=== PATIENT | female | born 1935 | race Caucasian/White ===

== ENCOUNTER 2016-11-03 14:51 | Emergency (ER) | payer MEDICARE, BC ==
[2016-11-03 15:02] VITALS: BP 168/63
[2016-11-03] MEDS ORDERED: methylPREDNISolone Sodium Succinate 125 MG/2 ML SDV IM ONE (15:22)
--- NOTE | 2016-11-03 15:28 | EDM.PDOC ---
ED HPI GENERAL MEDICAL PROBLEM - General Chief Complaint: Skin Complaint Stated Complaint: RASH Time Seen by Provider: 11/03/16 15:10 Source of Information: Reports: Patient, Family, RN, RN Notes Reviewed History Limitations: Reports: No Limitations - History of Present Illness INITIAL COMMENTS - FREE TEXT/NARRATIVE: Patient presents to the emergency room at [facility] with a possible drug reaction. The patient states that she started taking amoxicillin last Saturday for a diagnosis of a sinus infection and sore throat. The patient also started taking Bystolic for her blood pressure last Saturday. The patient states she noticed last night she had redness and swelling below the left eye around the left cheek area. The patient states the area was very itchy. The patient states she noticed today the rash had spread to both lower legs around the trunk and arms. The patient states the rash is itchy. The rash is not painful. The patient denies any airway compromise. The patient has never been on amoxicillin or Bystolic in the past. The patient states that she washed the affected areas with soap and water and applied cortisone cream, which did give her some relief. Onset Date: 11/02/16 - Related Data Allergies Allergy/AdvReac Type Severity Reaction Status Date / Time No Known Allergies Allergy Verified 11/03/16 15:04 Home Meds: Home Meds Amoxicillin 875 mg PO BID 11/03/16 [History] Nebivolol [Bystolic] 2.5 mg PO DAILY 11/03/16 [History] predniSONE [Deltasone] 20 mg PO BID #4 tablet 11/03/16 [Rx] Past Medical History Cardiovascular History: Reports: Hypertension Social & Family History - Tobacco Use Smoking Status *Q: Unknown Ever Smoked ED ROS GENERAL - Review of Systems Review Of Systems: See Below Constitutional: Denies: Fever, Chills, Weakness Respiratory: Denies: Shortness of Breath, Wheezing, Cough Cardiovascular: Denies: Chest Pain, Dyspnea on Exertion, Palpitations GI/Abdominal: Denies: Abdominal Pain, Nausea, Vomiting Skin: Reports: Pruritis, Rash, Urticaria Neurological: Reports: No Symptoms. Denies: Dizziness, Headache ED EXAM, SKIN/RASH Exam: See Below Exam Limited By: No Limitations General Appearance: Alert, No Apparent Distress Throat/Mouth: No Airway Compromise Neck: Supple Respiratory/Chest: No Respiratory Distress, Lungs Clear, Normal Breath Sounds Cardiovascular: Regular Rate, Rhythm GI/Abdominal: Normal Bowel Sounds, Soft, Non-Tender Neurological: Alert, Oriented Skin: Warm, Dry, Intact, Rash Location, Skin: Upper Extremity, Right, Upper Extremity, Left, Lower Extremity, Right, Lower Extremity, Left Characteristics: Urticarial Associated features: Warmth Course - Vital Signs Last Recorded V/S: Last Vital Signs Temp 36.8 C 11/03/16 14:55 Pulse 66 11/03/16 14:55 Resp 18 11/03/16 14:55 BP 168/63 H 11/03/16 14:55 Pulse Ox 97 11/03/16 14:55 - Orders/Labs/Meds Orders: Active Orders 24 hr Category Date Time Status methylPREDNISolone Sod Succ [Solu-MEDROL] Med 11/03/16 15:22 Once 125 mg IM ONETIME ONE Departure - Departure Time of Disposition: 15:32 Disposition: Home, Self-Care 01 Condition: Good Clinical Impression: Allergic drug reaction Qualifiers: Encounter type: initial encounter Qualified Code(s): T78.40XA - Allergy, unspecified, initial encounter - Discharge Information Prescriptions: predniSONE [Deltasone] 20 mg PO BID #4 tablet Instructions: Drug Rash, Drug Allergy Referrals: Rosemary Monson MD [Physician] - Forms: ED Department Discharge Additional Instructions: 1. Stay well hydrated and rest 2. Take medication for the full coarse, even if symptoms are better 3. Take to your Primary care provider on Saturday for a follow up 4. Stop taking the Amoxicillin; continue taking the Bystolic - Problem List Review Problem List Initiated/Reviewed/Updated: Yes - My Orders Last 24 Hours: My Active Orders 11/03/16 15:22 methylPREDNISolone Sod Succ [Solu-MEDROL] 125 mg IM ONETIME ONE - Assessment/Plan Last 24 Hours: My Active Orders 11/03/16 15:22 methylPREDNISolone Sod Succ [Solu-MEDROL] 125 mg IM ONETIME ONE
[2016-11-03] MEDS ORDERED: Take Home: predniSONE 20 MG, 2 Tab Pack PO ONE (15:36)
== END 2016-11-03 15:48 | disposition home or self-care (01) ==
LOC: VM.ED 14:51
DX: L50.9 Urticaria, unspecified (principal); T36.0X5A Adverse effect of penicillins, initial encounter; T44.7X5A Adverse effect of beta-adrenoreceptor antagonists, initial encounter; I10 Essential (primary) hypertension
CPT/HCPCS: 96372; 99283; A9270; J2930

== ENCOUNTER 2023-08-30 18:37 | Emergency (ER) | payer MEDICARE, BC ==
[2023-08-30 23:12] VITALS: BP 201/83; PULSE 72
== END 2023-08-30 19:30 | disposition home or self-care (01) ==
LOC: VM.ED 18:37
DX: I10 Essential (primary) hypertension (principal); F41.9 Anxiety disorder, unspecified
CPT/HCPCS: 99283

== ENCOUNTER 2023-09-02 10:44 | Emergency (ER) | payer MEDICARE, BC ==
[2023-09-02 11:28] LABS: BASOPHILS PERCENT AUTO 0.2 % (0.2-1.2); HEMATOCRIT 33.6 % (33.0-47.0); HEMOGLOBIN 11.4 g/dL (12.0-16.0); LYMPHOCYTES ABSOLUTE AUTO 1.3 x10^3/uL (1.0-4.8); LYMPHOCYTES PERCENT AUTO 24.7 % (25.0-50.0); MEAN CORPUSCULAR HEMOGLOBIN 30.8 pg (26.0-32.0); MEAN CORPUSCULAR HGB CONC 33.9 g/dL (32.0-36.0); MEAN CORPUSCULAR VOLUME 90.8 fL (78.0-93.0); MONOCYTES ABSOLUTE AUTO 0.4 x10^3/uL (0.0-0.8); MONOCYTES PERCENT AUTO 7.1 % (2.0-11.0); NEUTROPHILS ABSOLUTE AUTO 3.6 x10^3/uL (1.8-7.7); PLATELET COUNT,PLT 258 x10^3/uL (130-400); WHITE BLOOD CELL COUNT,WBC 5.3 x10^3/uL (4.0-10.0)
[2023-09-02 11:37] VITALS: BP 173/81; PULSE 84
[2023-09-02 11:37] LABS: APPEARANCE,URINE CLEAR (CLEAR); BILIRUBIN,URINE SMALL (NEGATIVE); COLOR,URINE YELLOW (YELLOW); GLUCOSE,URINE NEGATIVE (NEGATIVE); KETONES,URINE 80 mg/dL (NEGATIVE); LEUKOCYTE ESTERASE,URINE NEGATIVE (NEGATIVE); NITRITE,URINE NEGATIVE (NEGATIVE); OCCULT BLOOD,URINE NEGATIVE (NEGATIVE); PH,URINE 5.5 (5.0-8.0); PROTEIN,URINE 30 mg/dL (NEGATIVE); UROBILINOGEN,URINE 0.2 EU/dL (0.2)
[2023-09-02 11:39] LABS: AMORPHOUS SEDIMENT,URINE RARE; BACTERIA,URINE RARE /HPF (NOT SEEN); HYALINE CASTS,URINE FEW; MUCUS,URINE NOT SEEN /LPF (NOT SEEN); RBC,URINE 0-5 /HPF (NOT SEEN); SQUAMOUS EPITHELIAL CELLS,UR RARE /HPF (NOT SEEN); WBC,URINE 0-5 /HPF (NOT SEEN)
[2023-09-02 11:47] LABS: A/G RATIO 1.03; ALBUMIN 3.5 g/dL (3.4-5.0); BILIRUBIN TOTAL 0.4 mg/dL (0.2-1.0); CALCIUM 9.3 mg/dL (8.5-10.1); CREATININE 0.9 mg/dL (0.55-1.02); EST CRCL DRUG DOSING (CG) 33.39 mL/min; POTASSIUM,K 4.2 mmol/L (3.5-5.1); PROTEIN TOTAL,TP 6.9 g/dL (6.4-8.2)
[2023-09-02 11:51] LABS: ANION GAP 15.2 mmol/L (5-15)
[2023-09-02] MEDS: Lactated Ringers 1,000 ML IV SCH (12:22)
== END 2023-09-02 14:00 | disposition home or self-care (01) ==
LOC: VM.ED 10:44 → SUPCPDRO 10:44 → VM.ED 14:00
DX: R42 Dizziness and giddiness (principal); I10 Essential (primary) hypertension; Z91.048 Other nonmedicinal substance allergy status; Z79.899 Other long term (current) drug therapy
CPT/HCPCS: 80053; 81001; 85025; 93005; 99284; J7120

== ENCOUNTER 2024-05-02 09:44 | Emergency (ER) | payer MEDICARE, BC ==
[2024-05-02 10:33] VITALS: BP 149/74; PULSE 68
== END 2024-05-02 10:24 | disposition home or self-care (01) ==
LOC: VM.ED 09:44
DX: K52.9 Noninfective gastroenteritis and colitis, unspecified (principal); I10 Essential (primary) hypertension; Z79.899 Other long term (current) drug therapy; Z91.048 Other nonmedicinal substance allergy status
CPT/HCPCS: 99283; 99284

== ENCOUNTER 2024-05-03 13:27 | Inpatient (IN) | payer MEDICARE, BC ==
[2024-05-03] MEDS ORDERED: Sodium Chloride 0.9% 10 ML Syringe FLUSH PRN (13:39)
[2024-05-03] MEDS: Sodium Chloride 0.9% 1,000 ML IV SCH (14:02)
[2024-05-03 14:07] LABS: BASOPHILS PERCENT AUTO 0.5 % (0.2-1.2); EOSINOPHILS ABSOLUTE AUTO 0.1 x10^3/uL (0.0-0.5); EOSINOPHILS PERCENT AUTO 2.3 % (0.0-4.0); HEMATOCRIT 33.3 % (33.0-47.0); LYMPHOCYTES ABSOLUTE AUTO 1.5 x10^3/uL (1.0-4.8); LYMPHOCYTES PERCENT AUTO 25.6 % (25.0-50.0); MEAN CORPUSCULAR HEMOGLOBIN 30.8 pg (26.0-32.0); MEAN CORPUSCULAR VOLUME 85.6 fL (78.0-93.0); MONOCYTES ABSOLUTE AUTO 0.4 x10^3/uL (0.0-0.8); MONOCYTES PERCENT AUTO 6.9 % (2.0-11.0); NEUTROPHILS ABSOLUTE AUTO 3.7 x10^3/uL (1.8-7.7); NEUTROPHILS PERCENT AUTO 64.7 % (50.0-80.0); PLATELET COUNT,PLT 307 x10^3/uL (130-400); RED BLOOD CELL COUNT 3.89 x10^6/uL (4.00-5.50); WHITE BLOOD CELL COUNT,WBC 5.7 x10^3/uL (4.0-10.0)
[2024-05-03 14:23] LABS: ALBUMIN 3.8 g/dL (3.4-5.0); BILIRUBIN TOTAL 0.8 mg/dL (0.2-1.0); CALCIUM 9.1 mg/dL (8.5-10.1); CREATININE 0.8 mg/dL (0.55-1.02); EST CRCL DRUG DOSING (CG) 37.71 mL/min; MAGNESIUM 1.7 mg/dL (1.8-2.4); POTASSIUM,K 3.1 mmol/L (3.5-5.1); PROTEIN TOTAL,TP 7.6 g/dL (6.4-8.2)
[2024-05-03 14:26] LABS: ANION GAP 17.1 mmol/L (5-15)
[2024-05-03] MEDS: Potassium Chloride 20 MEQ Tab.ER PO ONE (14:34)
[2024-05-03] MEDS ORDERED: Ondansetron 4 MG Tab.DIS PO PRN (16:03)
[2024-05-03] MEDS ORDERED: Acetaminophen 325 MG Tab PO PRN (16:03)
[2024-05-03] MEDS ORDERED: Loperamide 2 MG Cap PO PRN (16:10)
[2024-05-03] MEDS: NS with KCl 40mEq 1,000 ML IV SCH (16:50)
[2024-05-03 18:48] LABS: APPEARANCE,URINE CLEAR (CLEAR); BILIRUBIN,URINE NEGATIVE (NEGATIVE); COLOR,URINE YELLOW (YELLOW); GLUCOSE,URINE NEGATIVE (NEGATIVE); KETONES,URINE 40 mg/dL (NEGATIVE); LEUKOCYTE ESTERASE,URINE NEGATIVE (NEGATIVE); NITRITE,URINE NEGATIVE (NEGATIVE); OCCULT BLOOD,URINE TRACE-INTACT (NEGATIVE); PROTEIN,URINE NEGATIVE (NEGATIVE); UROBILINOGEN,URINE 0.2 EU/dL (0.2)
[2024-05-03 19:03] LABS: BACTERIA,URINE RARE /HPF (NOT SEEN); RBC,URINE 0-5 /HPF (NOT SEEN); SQUAMOUS EPITHELIAL CELLS,UR RARE /HPF (NOT SEEN); WBC,URINE 0-5 /HPF (NOT SEEN)
[2024-05-03] MEDS: Nystatin Crm 30 GM Tube TOP SCH (20:46)
[2024-05-04 07:06] LABS: BASOPHILS PERCENT AUTO 0.4 % (0.2-1.2); EOSINOPHILS PERCENT AUTO 0.5 % (0.0-4.0); HEMATOCRIT 29.6 % (33.0-47.0); HEMOGLOBIN 10.4 g/dL (12.0-16.0); IMMATURE GRAN ABSOLUTE AUTO 0.01 x10^3/uL (0.00-0.07); LYMPHOCYTES ABSOLUTE AUTO 1.2 x10^3/uL (1.0-4.8); LYMPHOCYTES PERCENT AUTO 21.4 % (25.0-50.0); MEAN CORPUSCULAR HEMOGLOBIN 30.9 pg (26.0-32.0); MEAN CORPUSCULAR HGB CONC 35.1 g/dL (32.0-36.0); MEAN CORPUSCULAR VOLUME 87.8 fL (78.0-93.0); MONOCYTES ABSOLUTE AUTO 0.5 x10^3/uL (0.0-0.8); MONOCYTES PERCENT AUTO 9.3 % (2.0-11.0); NEUTROPHILS ABSOLUTE AUTO 3.8 x10^3/uL (1.8-7.7); NEUTROPHILS PERCENT AUTO 68.2 % (50.0-80.0); PLATELET COUNT,PLT 264 x10^3/uL (130-400); RED BLOOD CELL COUNT 3.37 x10^6/uL (4.00-5.50); WHITE BLOOD CELL COUNT,WBC 5.6 x10^3/uL (4.0-10.0)
[2024-05-04 07:18] LABS: ANION GAP 16.5 mmol/L (5-15); CREATININE 0.6 mg/dL (0.55-1.02); EST CRCL DRUG DOSING (CG) 49.75 mL/min; MAGNESIUM 1.6 mg/dL (1.8-2.4); POTASSIUM,K 4.5 mmol/L (3.5-5.1)
[2024-05-04] MEDS: Metoprolol Succinate 50 MG Tab.ER PO SCH (08:23)
[2024-05-04] MEDS: Sodium Chloride 0.9% 1,000 ML IV SCH (08:30)
[2024-05-04] MEDS: Enoxaparin 40 MG/0.4 ML Syringe SUBCUT SCH (12:38)
[2024-05-04 18:46] VITALS: BP 198/102; PULSE 83
== END 2024-05-04 18:40 | disposition home or self-care (01) | DRG 641 ==
LOC: VM.ED 13:27 → VM.MS 14:35
PROVIDERS: ADMIT Nurse Practitioner Family; ATTEND Nurse Practitioner Family
DX: E87.1 Hypo-osmolality and hyponatremia (principal); E87.6 Hypokalemia; F41.9 Anxiety disorder, unspecified; I10 Essential (primary) hypertension; E78.00 Pure hypercholesterolemia, unspecified; H26.9 Unspecified cataract; F15.90 Other stimulant use, unspecified, uncomplicated; K52.9 Noninfective gastroenteritis and colitis, unspecified; M81.0 Age-related osteoporosis without current pathological fracture; Z86.19 Personal history of other infectious and parasitic diseases; Z98.49 Cataract extraction status, unspecified eye; Z90.89 Acquired absence of other organs; Z98.890 Other specified postprocedural states; Z91.048 Other nonmedicinal substance allergy status; Z79.02 Long term (current) use of antithrombotics/antiplatelets; Z79.899 Other long term (current) drug therapy
CPT/HCPCS: 36415; 80048; 80053; 81001; 83735; 83935; 84295; 85025; 96360; 97161-GP; 99284; 99285-25; A9270-GY; J1650; J3480; J7030

== ENCOUNTER 2024-05-06 04:52 | Emergency (ER) | payer MEDICARE, BC ==
[2024-05-06 05:41] LABS: BASOPHILS PERCENT AUTO 0.5 % (0.2-1.2); EOSINOPHILS ABSOLUTE AUTO 0.1 x10^3/uL (0.0-0.5); EOSINOPHILS PERCENT AUTO 1.6 % (0.0-4.0); HEMATOCRIT 29.5 % (33.0-47.0); HEMOGLOBIN 10.4 g/dL (12.0-16.0); LYMPHOCYTES ABSOLUTE AUTO 1.2 x10^3/uL (1.0-4.8); LYMPHOCYTES PERCENT AUTO 28.1 % (25.0-50.0); MEAN CORPUSCULAR HEMOGLOBIN 31.2 pg (26.0-32.0); MEAN CORPUSCULAR HGB CONC 35.3 g/dL (32.0-36.0); MEAN CORPUSCULAR VOLUME 88.6 fL (78.0-93.0); MONOCYTES ABSOLUTE AUTO 0.4 x10^3/uL (0.0-0.8); NEUTROPHILS ABSOLUTE AUTO 2.7 x10^3/uL (1.8-7.7); NEUTROPHILS PERCENT AUTO 61.8 % (50.0-80.0); PLATELET COUNT,PLT 257 x10^3/uL (130-400); RED BLOOD CELL COUNT 3.33 x10^6/uL (4.00-5.50); WHITE BLOOD CELL COUNT,WBC 4.4 x10^3/uL (4.0-10.0)
[2024-05-06 05:57] LABS: A/G RATIO 0.97; ALBUMIN 3.3 g/dL (3.4-5.0); BILIRUBIN TOTAL 0.5 mg/dL (0.2-1.0); CALCIUM 8.8 mg/dL (8.5-10.1); CREATININE 0.7 mg/dL (0.55-1.02); EST CRCL DRUG DOSING (CG) 43.09 mL/min; POTASSIUM,K 3.5 mmol/L (3.5-5.1); PROTEIN TOTAL,TP 6.7 g/dL (6.4-8.2)
[2024-05-06 05:57] LABS: APPEARANCE,URINE CLEAR (CLEAR); BILIRUBIN,URINE NEGATIVE (NEGATIVE); COLOR,URINE YELLOW (YELLOW); GLUCOSE,URINE NEGATIVE (NEGATIVE); KETONES,URINE 40 mg/dL (NEGATIVE); LEUKOCYTE ESTERASE,URINE NEGATIVE (NEGATIVE); NITRITE,URINE NEGATIVE (NEGATIVE); OCCULT BLOOD,URINE TRACE-LYSED (NEGATIVE); PH,URINE 6.5 (5.0-8.0); PROTEIN,URINE NEGATIVE (NEGATIVE); UROBILINOGEN,URINE 0.2 EU/dL (0.2)
[2024-05-06 05:59] LABS: ANION GAP 9.5 mmol/L (5-15)
[2024-05-06 05:59] LABS: RBC,URINE 0-5 /HPF (NOT SEEN); WBC,URINE 0-5 /HPF (NOT SEEN)
[2024-05-06 06:00] LABS: BACTERIA,URINE NOT SEEN /HPF (NOT SEEN); MUCUS,URINE NOT SEEN /LPF (NOT SEEN); SQUAMOUS EPITHELIAL CELLS,UR OCCASIONAL /HPF (NOT SEEN)
[2024-05-06 06:09] VITALS: BP 167/74; PULSE 64
== END 2024-05-06 06:52 | disposition home or self-care (01) ==
LOC: VM.ED 04:52
DX: I10 Essential (primary) hypertension (principal); Z88.0 Allergy status to penicillin; Z91.048 Other nonmedicinal substance allergy status; Z79.899 Other long term (current) drug therapy
CPT/HCPCS: 36415; 80053; 81001; 85025; 99284

== ENCOUNTER 2024-05-18 08:19 | Emergency (ER) | payer MEDICARE, BC ==
[2024-05-18 08:48] LABS: BASOPHILS PERCENT AUTO 0.3 % (0.2-1.2); EOSINOPHILS ABSOLUTE AUTO 0.1 x10^3/uL (0.0-0.5); EOSINOPHILS PERCENT AUTO 1.4 % (0.0-4.0); HEMATOCRIT 36.7 % (33.0-47.0); HEMOGLOBIN 12.6 g/dL (12.0-16.0); IMMATURE GRAN ABSOLUTE AUTO 0.01 x10^3/uL (0.00-0.07); LYMPHOCYTES ABSOLUTE AUTO 1.6 x10^3/uL (1.0-4.8); LYMPHOCYTES PERCENT AUTO 25.4 % (25.0-50.0); MEAN CORPUSCULAR HEMOGLOBIN 31.2 pg (26.0-32.0); MEAN CORPUSCULAR HGB CONC 34.3 g/dL (32.0-36.0); MEAN CORPUSCULAR VOLUME 90.8 fL (78.0-93.0); MONOCYTES ABSOLUTE AUTO 0.5 x10^3/uL (0.0-0.8); MONOCYTES PERCENT AUTO 7.6 % (2.0-11.0); NEUTROPHILS ABSOLUTE AUTO 4.1 x10^3/uL (1.8-7.7); NEUTROPHILS PERCENT AUTO 65.1 % (50.0-80.0); PLATELET COUNT,PLT 260 x10^3/uL (130-400); RED BLOOD CELL COUNT 4.04 x10^6/uL (4.00-5.50); WHITE BLOOD CELL COUNT,WBC 6.2 x10^3/uL (4.0-10.0)
[2024-05-18 09:06] LABS: A/G RATIO 1.08; ALANINE AMINOTRANSFERASE,ALT 13 U/L (14-59); ALBUMIN 3.9 g/dL (3.4-5.0); ALKALINE PHOSPHATASE 64 U/L (46-116); ASPARTATE AMNIOTRANSFERASE,AST 15 U/L (15-37); BILIRUBIN TOTAL 0.7 mg/dL (0.2-1.0); BLOOD UREA NITROGEN,BUN 8 mg/dL (7-18); CALCIUM 9.2 mg/dL (8.5-10.1); CARBON DIOXIDE,CO2 31 mmol/L (21-32); CHLORIDE,CL 93 mmol/L (98-107); CREATININE 0.7 mg/dL (0.55-1.02); GLUCOSE RANDOM 113 mg/dL (70-99); PROTEIN TOTAL,TP 7.5 g/dL (6.4-8.2); SODIUM,NA 134 mmol/L (136-145)
[2024-05-18 09:12] LABS: ESTIMATED GFR 83 mL/min (>=60)
[2024-05-18 09:47] LABS: BILIRUBIN,URINE NEGATIVE (NEGATIVE); COLOR,URINE YELLOW (YELLOW); GLUCOSE,URINE NEGATIVE (NEGATIVE); KETONES,URINE 15 mg/dL (NEGATIVE); LEUKOCYTE ESTERASE,URINE NEGATIVE (NEGATIVE); NITRITE,URINE NEGATIVE (NEGATIVE); OCCULT BLOOD,URINE TRACE-INTACT (NEGATIVE); PROTEIN,URINE NEGATIVE (NEGATIVE); UROBILINOGEN,URINE 0.2 EU/dL (0.2)
[2024-05-18 09:48] LABS: APPEARANCE,URINE SLIGHTLY CLOUDY (CLEAR)
[2024-05-18 09:52] LABS: BACTERIA,URINE OCCASIONAL /HPF (NOT SEEN); MUCUS,URINE RARE /LPF (NOT SEEN); RBC,URINE 0-5 /HPF (NOT SEEN); SQUAMOUS EPITHELIAL CELLS,UR OCCASIONAL /HPF (NOT SEEN); WBC,URINE 0-5 /HPF (NOT SEEN)
[2024-05-18] MEDS: Lactated Ringers 1,000 ML IV SCH (10:17)
[2024-05-18] MEDS: Potassium Chloride 10 MEQ Tab.ER PO ONE (10:23)
[2024-05-18] MEDS: hydrALAZINE 20 MG/ML SDV IVPUSH ONE (11:04)
[2024-05-18 11:51] VITALS: BP 159/73
[2024-05-18 13:25] VITALS: PULSE 80
== END 2024-05-18 12:34 ==
LOC: VM.ED 08:19
DX: E87.6 Hypokalemia (principal); R63.0 Anorexia; R53.1 Weakness; I10 Essential (primary) hypertension; Z88.0 Allergy status to penicillin; Z91.09 Other allergy status, other than to drugs and biological substances; Z79.899 Other long term (current) drug therapy
CPT/HCPCS: 80053; 81001; 83605; 83735; 85025; 96361; 96374; 99284; 99285-25; A9270-GY; J0360; J7120

== ENCOUNTER 2024-08-16 21:31 | Inpatient (IN) | payer MEDICARE, BC ==
[2024-08-16 22:05] LABS: BASOPHILS PERCENT AUTO 0.1 % (0.2-1.2); EOSINOPHILS ABSOLUTE AUTO 0.1 x10^3/uL (0.0-0.5); EOSINOPHILS PERCENT AUTO 1.6 % (0.0-4.0); HEMATOCRIT 30.9 % (33.0-47.0); HEMOGLOBIN 9.9 g/dL (12.0-16.0); IMMATURE GRAN ABSOLUTE AUTO 0.01 x10^3/uL (0.00-0.07); LYMPHOCYTES ABSOLUTE AUTO 1.1 x10^3/uL (1.0-4.8); LYMPHOCYTES PERCENT AUTO 12.5 % (25.0-50.0); MEAN CORPUSCULAR HEMOGLOBIN 30.6 pg (26.0-32.0); MEAN CORPUSCULAR VOLUME 95.4 fL (78.0-93.0); MONOCYTES ABSOLUTE AUTO 0.5 x10^3/uL (0.0-0.8); MONOCYTES PERCENT AUTO 5.9 % (2.0-11.0); NEUTROPHILS ABSOLUTE AUTO 6.9 x10^3/uL (1.8-7.7); NEUTROPHILS PERCENT AUTO 79.8 % (50.0-80.0); PLATELET COUNT,PLT 287 x10^3/uL (130-400); RED BLOOD CELL COUNT 3.24 x10^6/uL (4.00-5.50); WHITE BLOOD CELL COUNT,WBC 8.7 x10^3/uL (4.0-10.0)
[2024-08-16 22:34] LABS: A/G RATIO 0.89; ALBUMIN 3.2 g/dL (3.4-5.0); BILIRUBIN TOTAL 0.5 mg/dL (0.2-1.0); CALCIUM 8.7 mg/dL (8.5-10.1); CREATININE 0.9 mg/dL (0.55-1.02); EST CRCL DRUG DOSING (CG) 33.52 mL/min; MAGNESIUM 2.1 mg/dL (1.8-2.4); PROTEIN TOTAL,TP 6.8 g/dL (6.4-8.2); TSH ULTRASENSITIVE 0.659 uIU/mL (0.358-3.74)
[2024-08-16 22:38] LABS: ANION GAP 8.6 mmol/L (5-15); POTASSIUM,K 2.6 mmol/L (3.5-5.1)
[2024-08-16 22:45] LABS: APPEARANCE,URINE CLEAR (CLEAR); BILIRUBIN,URINE SMALL (NEGATIVE); COLOR,URINE YELLOW (YELLOW); GLUCOSE,URINE NEGATIVE (NEGATIVE); KETONES,URINE TRACE mg/dL (NEGATIVE); LEUKOCYTE ESTERASE,URINE SMALL (NEGATIVE); NITRITE,URINE NEGATIVE (NEGATIVE); OCCULT BLOOD,URINE NEGATIVE (NEGATIVE); PROTEIN,URINE 100 mg/dL (NEGATIVE)
[2024-08-16] MEDS ORDERED: Sodium Chloride 0.9% 10 ML Syringe FLUSH PRN (22:47)
[2024-08-16 22:53] LABS: AMPHETAMINES SCREEN, URINE NEGATIVE (NEGATIVE); BARBITURATE SCREEN,URINE NEGATIVE (NEGATIVE)
[2024-08-16 22:54] LABS: BENZODIAZEPINES SCREEN,URINE NEGATIVE (NEGATIVE); BUPRENORPHINE SCREEN,URINE NEGATIVE (NEGATIVE); COCAINE METABOLITES,URINE NEGATIVE (NEGATIVE); METHADONE SCREEN, URINE NEGATIVE (NEGATIVE); METHAMPHETAMINE SCREEN, URINE NEGATIVE (NEGATIVE); OXYCODONE SCREEN,URINE NEGATIVE (NEGATIVE); PCP SCREEN,URINE NEGATIVE (NEGATIVE); THC SCREEN,URINE 50 NG/ML NEGATIVE (NEGATIVE)
[2024-08-16] MEDS: LORazepam 2 MG/ML SDV IM ONE (23:00)
[2024-08-16 23:03] LABS: SQUAMOUS EPITHELIAL CELLS,UR MODERATE /HPF (NOT SEEN)
[2024-08-16 23:04] LABS: BACTERIA,URINE MODERATE /HPF (NOT SEEN); HYALINE CASTS,URINE OCCASIONAL; MUCUS,URINE MODERATE /LPF (NOT SEEN)
[2024-08-16] MEDS: cefTRIAXone 1 GM Vial IVPUSH ONE (23:26)
[2024-08-17] MEDS: NS + KCl 20mEq/L 1,000 ML IV SCH (01:43)
[2024-08-17] MEDS: Pantoprazole 40 MG Tab.CR PO SCH (06:25)
[2024-08-17 07:11] LABS: BASOPHILS PERCENT AUTO 0.3 % (0.2-1.2); EOSINOPHILS ABSOLUTE AUTO 0.3 x10^3/uL (0.0-0.5); EOSINOPHILS PERCENT AUTO 3.6 % (0.0-4.0); HEMATOCRIT 27.7 % (33.0-47.0); HEMOGLOBIN 8.8 g/dL (12.0-16.0); IMMATURE GRAN ABSOLUTE AUTO 0.01 x10^3/uL (0.00-0.07); LYMPHOCYTES ABSOLUTE AUTO 1.4 x10^3/uL (1.0-4.8); LYMPHOCYTES PERCENT AUTO 20.9 % (25.0-50.0); MEAN CORPUSCULAR HEMOGLOBIN 30.9 pg (26.0-32.0); MEAN CORPUSCULAR HGB CONC 31.8 g/dL (32.0-36.0); MEAN CORPUSCULAR VOLUME 97.2 fL (78.0-93.0); MONOCYTES ABSOLUTE AUTO 0.5 x10^3/uL (0.0-0.8); MONOCYTES PERCENT AUTO 7.8 % (2.0-11.0); NEUTROPHILS ABSOLUTE AUTO 4.6 x10^3/uL (1.8-7.7); NEUTROPHILS PERCENT AUTO 67.3 % (50.0-80.0); PLATELET COUNT,PLT 225 x10^3/uL (130-400); RED BLOOD CELL COUNT 2.85 x10^6/uL (4.00-5.50); WHITE BLOOD CELL COUNT,WBC 6.9 x10^3/uL (4.0-10.0)
[2024-08-17 07:13] LABS: CALCIUM 8.3 mg/dL (8.5-10.1); CREATININE 0.7 mg/dL (0.55-1.02); EST CRCL DRUG DOSING (CG) 40.61 mL/min
[2024-08-17 07:17] LABS: ANION GAP 4.9 mmol/L (5-15); POTASSIUM,K 2.9 mmol/L (3.5-5.1)
[2024-08-17] MEDS: cefTRIAXone 1 GM Vial IVPUSH SCH (08:21)
[2024-08-17] MEDS: Metoprolol Succinate 50 MG Tab.ER PO SCH (08:28)
[2024-08-17] MEDS: Sennosides/Docusate Sodium 50-8.6 MG Tab PO SCH (08:28)
[2024-08-17] MEDS: Haloperidol 0.5 MG Tab PO PRN (11:26)
[2024-08-17] MEDS: Acetaminophen 325 MG Tab PO PRN (11:26)
[2024-08-17] MEDS: Potassium Chloride 10 MEQ Tab.ER PO SCH (17:38)
[2024-08-17] MEDS ORDERED: Take Home: LORazepam 0.5 MG Tab, 2 Tab Pack PO PRN (17:40)
[2024-08-17] MEDS: Metoprolol Succinate 25 MG Tab.ER PO SCH (18:15)
[2024-08-17] MEDS: Enoxaparin 40 MG/0.4 ML Syringe SUBCUT SCH (21:11)
[2024-08-17] MEDS: Mirtazapine 15 MG Tab PO SCH (21:11)
[2024-08-17] MEDS ORDERED: Flumazenil 0.1 MG/ML 5 ML MDV IVPUSH PRN (22:23)
[2024-08-17] MEDS: LORazepam 2 MG/ML SDV IM ONE (22:34)
[2024-08-18 07:06] LABS: HEMATOCRIT 32.2 % (33.0-47.0); HEMOGLOBIN 10.2 g/dL (12.0-16.0); MEAN CORPUSCULAR HEMOGLOBIN 30.4 pg (26.0-32.0); MEAN CORPUSCULAR HGB CONC 31.7 g/dL (32.0-36.0); MEAN CORPUSCULAR VOLUME 95.8 fL (78.0-93.0); RED BLOOD CELL COUNT 3.36 x10^6/uL (4.00-5.50); WHITE BLOOD CELL COUNT,WBC 5.7 x10^3/uL (4.0-10.0)
[2024-08-18 07:29] LABS: CALCIUM 8.3 mg/dL (8.5-10.1); CREATININE 0.5 mg/dL (0.55-1.02); EST CRCL DRUG DOSING (CG) 58.88 mL/min; POTASSIUM,K 3.7 mmol/L (3.5-5.1)
[2024-08-18 07:53] LABS: ANION GAP 9.7 mmol/L (5-15)
[2024-08-18] MEDS ORDERED: QUEtiapine 25 MG Tab PO PRN (08:29)
[2024-08-18] MEDS ORDERED: Flumazenil 0.1 MG/ML 5 ML MDV IVPUSH PRN (08:30)
[2024-08-18] MEDS ORDERED: Morphine Oral Concentrate 20 MG/ML 30 ML Bottle SL PRN (08:57)
[2024-08-18] MEDS ORDERED: HYDROmorphone 0.5 MG/0.5 ML Syringe IVPUSH PRN (08:57)
[2024-08-18] MEDS ORDERED: OLANZapine 5 MG Tab PO SCH (09:00)
[2024-08-18] MEDS: QUEtiapine 25 MG Tab PO SCH (09:49)
[2024-08-18] MEDS: LORazepam 0.5 MG Tab PO PRN (09:50)
[2024-08-18] MEDS: Escitalopram 10 MG Tab PO SCH (09:50)
[2024-08-18] MEDS: Potassium Chloride 10 MEQ Tab.ER PO SCH (10:37)
[2024-08-18] MEDS: fentaNYL 12 MCG/HR Transdermal Patch TRDERM SCH (12:48)
[2024-08-18] MEDS: Haloperidol 0.5 MG Tab PO SCH (20:21)
[2024-08-18] MEDS ORDERED: QUEtiapine 25 MG Tab PO SCH (21:00)
[2024-08-18] MEDS: LORazepam 2 MG/ML SDV IVPUSH PRN (21:48)
[2024-08-19 06:40] LABS: BASOPHILS PERCENT AUTO 0.3 % (0.2-1.2); EOSINOPHILS ABSOLUTE AUTO 0.2 x10^3/uL (0.0-0.5); EOSINOPHILS PERCENT AUTO 3.6 % (0.0-4.0); HEMATOCRIT 29.7 % (33.0-47.0); HEMOGLOBIN 9.7 g/dL (12.0-16.0); IMMATURE GRAN ABSOLUTE AUTO 0.01 x10^3/uL (0.00-0.07); LYMPHOCYTES ABSOLUTE AUTO 1.4 x10^3/uL (1.0-4.8); LYMPHOCYTES PERCENT AUTO 22.6 % (25.0-50.0); MEAN CORPUSCULAR HEMOGLOBIN 30.6 pg (26.0-32.0); MEAN CORPUSCULAR HGB CONC 32.7 g/dL (32.0-36.0); MEAN CORPUSCULAR VOLUME 93.7 fL (78.0-93.0); MONOCYTES ABSOLUTE AUTO 0.5 x10^3/uL (0.0-0.8); MONOCYTES PERCENT AUTO 7.9 % (2.0-11.0); NEUTROPHILS PERCENT AUTO 65.4 % (50.0-80.0); PLATELET COUNT,PLT 253 x10^3/uL (130-400); RED BLOOD CELL COUNT 3.17 x10^6/uL (4.00-5.50); WHITE BLOOD CELL COUNT,WBC 6.1 x10^3/uL (4.0-10.0)
[2024-08-19 06:56] LABS: CALCIUM 8.3 mg/dL (8.5-10.1); CREATININE 0.6 mg/dL (0.55-1.02); EST CRCL DRUG DOSING (CG) 48.34 mL/min; POTASSIUM,K 4.5 mmol/L (3.5-5.1)
[2024-08-19 07:08] LABS: ANION GAP 10.5 mmol/L (5-15)
[2024-08-19] MEDS ORDERED: QUEtiapine 25 MG Tab PO PRN (08:10)
[2024-08-19] MEDS: Polyethylene Glycol 3350 Powder 17 GM Packet PO SCH (08:33)
[2024-08-19] MEDS ORDERED: QUEtiapine 25 MG Tab PO SCH (09:00)
[2024-08-19] MEDS: QUEtiapine 25 MG Tab PO ONE (09:55)
[2024-08-19] MEDS: QUEtiapine 25 MG Tab PO SCH (20:26)
[2024-08-19] MEDS: Mirtazapine 15 MG Tab PO SCH (20:27)
[2024-08-20 10:36] VITALS: BP 144/67; PULSE 95
== END 2024-08-20 11:45 | DRG 690 ==
LOC: VM.ED 21:31 → VM.MS 23:09
PROVIDERS: ADMIT Family Medicine; ATTEND Internal Medicine
DX: N39.0 Urinary tract infection, site not specified (principal); N30.00 Acute cystitis without hematuria; F02.84 Dementia in other diseases classified elsewhere, unspecified severity, with anxiety; Z66 Do not resuscitate; Z91.09 Other allergy status, other than to drugs and biological substances; H91.90 Unspecified hearing loss, unspecified ear; Z51.5 Encounter for palliative care; I10 Essential (primary) hypertension; K21.9 Gastro-esophageal reflux disease without esophagitis; M19.90 Unspecified osteoarthritis, unspecified site; M54.9 Dorsalgia, unspecified; G89.29 Other chronic pain; M81.0 Age-related osteoporosis without current pathological fracture; E61.1 Iron deficiency; G30.9 Alzheimer's disease, unspecified; E87.6 Hypokalemia; F41.9 Anxiety disorder, unspecified; D64.9 Anemia, unspecified; E78.5 Hyperlipidemia, unspecified; Z88.0 Allergy status to penicillin; Z79.899 Other long term (current) drug therapy; Z98.49 Cataract extraction status, unspecified eye; Z88.8 Allergy status to other drugs, medicaments and biological substances
CPT/HCPCS: 36415; 70450; 80048; 80053; 80305-QW; 80307; 81001; 82140; 83735; 84443; 85025; 85027; 87086; 94760; 96372; 99284; 99285; A9270-GY; J0696; J1650; J2060; J3480; Q3014